=== PATIENT | male | born 1965 | race Caucasian/White ===

== ENCOUNTER 2019-05-13 06:30 | Day surgery (SDC) | payer OTHER ==
[~2019-05-13] VITALS: Ht 170.2 cm; Wt 82.8 kg
[~2019-05-13 06:30] MED LIST: ALFU10; BACL20; Flovent Disku250 MCG; GABA300; LACT10SY; LISI5; MAGNESIUM OXID500 MG; MIRALAX17 GM; MONT10T; OMEPPI 40 MG-11 EACH; OXYB5; OXYC5; Ventolin5 MG/1 ML
== END 2019-05-13 10:29 | disposition home or self-care (01) ==
LOC: ORSCSDS 06:30
PROVIDERS: Internal Medicine Gastroenterology
PROC: 0DBN8ZX Excision of Sigmoid Colon, Via Natural or Artificial Opening Endoscopic, Diagnostic (ICD-10-PCS; principal; 2019-05-13 08:00)
PROC: 0DB68ZX Excision of Stomach, Via Natural or Artificial Opening Endoscopic, Diagnostic (ICD-10-PCS; principal; 2019-05-13 08:00)
PROC: 0DBK8ZX Excision of Ascending Colon, Via Natural or Artificial Opening Endoscopic, Diagnostic (ICD-10-PCS; principal; 2019-05-13 08:00)
PROC: 0DBM8ZX Excision of Descending Colon, Via Natural or Artificial Opening Endoscopic, Diagnostic (ICD-10-PCS; principal; 2019-05-13 08:00)
PROC: 0DBL8ZX Excision of Transverse Colon, Via Natural or Artificial Opening Endoscopic, Diagnostic (ICD-10-PCS; principal; 2019-05-13 08:00)
PROC: 0DBP8ZX Excision of Rectum, Via Natural or Artificial Opening Endoscopic, Diagnostic (ICD-10-PCS; principal; 2019-05-13 08:00)
DX: I85.00 Esophageal varices without bleeding (principal); Z12.11 Encounter for screening for malignant neoplasm of colon; Z86.010 Personal history of colon polyps; D12.2 Benign neoplasm of ascending colon; D12.3 Benign neoplasm of transverse colon; K63.5 Polyp of colon; D12.8 Benign neoplasm of rectum; K76.6 Portal hypertension; K31.89 Other diseases of stomach and duodenum; K57.30 Diverticulosis of large intestine without perforation or abscess without bleeding; K64.8 Other hemorrhoids; J44.9 Chronic obstructive pulmonary disease, unspecified; F17.210 Nicotine dependence, cigarettes, uncomplicated; I10 Essential (primary) hypertension; Z79.899 Other long term (current) drug therapy
CPT/HCPCS: 88305; J1980; J2405; J2704; J7120

== ENCOUNTER 2019-12-18 08:49 | Day surgery (SDC) | payer OTHER ==
[~2019-12-18] VITALS: Ht 170.2 cm; Wt 84.6 kg
--- NOTE | 2019-12-18 09:42 | NUR ---
12/18/19 [id number] Erica Mendez 1 TRY HAND RIGHT NO FLASH 2 TRY AC GOOD RIGHT ARM
== END 2019-12-18 11:15 | disposition home or self-care (01) ==
LOC: ORSCSDS 08:49
PROVIDERS: Internal Medicine Gastroenterology
PROC: 0DB98ZX Excision of Duodenum, Via Natural or Artificial Opening Endoscopic, Diagnostic (ICD-10-PCS; principal; 2019-12-18 10:30)
DX: K92.0 Hematemesis (principal); K74.60 Unspecified cirrhosis of liver; Z86.19 Personal history of other infectious and parasitic diseases; J44.9 Chronic obstructive pulmonary disease, unspecified; I85.00 Esophageal varices without bleeding; K76.6 Portal hypertension; K31.89 Other diseases of stomach and duodenum; F17.210 Nicotine dependence, cigarettes, uncomplicated; I10 Essential (primary) hypertension; J45.909 Unspecified asthma, uncomplicated; Z79.899 Other long term (current) drug therapy
CPT/HCPCS: 88305; J2704; J7120

== ENCOUNTER 2021-05-24 09:33 | Day surgery (SDC) | payer OTHER ==
[~2021-05-24] VITALS: Ht 170.2 cm; Wt 80.2 kg
[~2021-05-24 09:33] MED LIST changes: +ALBU90OI INH; +ALFU10 PO; +Aldactone50 MG PO; +BACL20 PO; +FURO20 PO; +Flovent Disku250 MCG INH; +LACTULOSE20 GM/30 M PO; +LISI5 PO; +MAGNESIUM OXID500 M1 PO; +MONT10T PO; +OMEP20ER PO; +OXYB5 PO; +OXYC5 PO; +POLYETHYLENE G500 G1 PO; +RIFA550T2 PO; +Vitamin B Comple1 EA PO
--- NOTE | 2021-05-24 10:26 | NUR ---
05/24/21 [id number] Erica Mendez PT REFUSES TO HAVE IV IN HAND
== END 2021-05-24 12:40 | disposition home or self-care (01) ==
LOC: ORSCSDS 09:33
PROVIDERS: Internal Medicine Gastroenterology
PROC: 0DJD8ZZ Inspection of Lower Intestinal Tract, Via Natural or Artificial Opening Endoscopic (ICD-10-PCS; principal; 2021-05-24 11:30)
PROC: 0DJ08ZZ Inspection of Upper Intestinal Tract, Via Natural or Artificial Opening Endoscopic (ICD-10-PCS; principal; 2021-05-24 11:30)
DX: I85.00 Esophageal varices without bleeding (principal); K76.6 Portal hypertension; K31.89 Other diseases of stomach and duodenum; K74.60 Unspecified cirrhosis of liver; K57.30 Diverticulosis of large intestine without perforation or abscess without bleeding; K64.8 Other hemorrhoids; Z12.11 Encounter for screening for malignant neoplasm of colon; Z86.010 Personal history of colon polyps; J44.9 Chronic obstructive pulmonary disease, unspecified; I25.10 Atherosclerotic heart disease of native coronary artery without angina pectoris; F31.9 Bipolar disorder, unspecified; Z79.899 Other long term (current) drug therapy; F17.210 Nicotine dependence, cigarettes, uncomplicated
CPT/HCPCS: J2704